=== PATIENT | female | born 1965 | race Caucasian/White ===

== ENCOUNTER 2024-04-14 09:53 | Outpatient (RCR) | payer BC, SELFPAY ==
[2024-04-14 12:32] LABS: Creatinine* 0.6 mg/dL (0.5-1.5); Est. Creatinine Clearance* 53.16; Estimated Glomerular Filt Rate 102 ml/min
--- NOTE | 2024-05-05 14:19 | ONC.NURNOTE ---
Dx: pancreatic cancer
== END 2024-10-11 23:59 | disposition home or self-care (01) ==
LOC: CCIC 09:53
PROVIDERS: PCP Radiology Radiation Oncology; Referring Provider Physician Assistant; Visit Provider Clinical Nurse Specialist
DX: C25.9 Malignant neoplasm of pancreas, unspecified (principal)
CPT/HCPCS: 36415; 36591; 82565